=== PATIENT | female | born 1965 | race Caucasian/White ===

== ENCOUNTER 2018-09-10 11:10 | Day surgery (SDC) | payer BC ==
[~2018-09-10] VITALS: Ht 165.1 cm; Wt 96.6 kg
[2018-09-10 13:14] VITALS: Ht 165.1 cm; Wt 96.6 kg
[2018-09-10] MEDS ORDERED: PROPOFOL 200 MG INJ ONE (13:27)
[2018-09-10 13:29] VITALS: BP 132/72; PULSE 75; RESP 18
[2018-09-10] MEDS ORDERED: LORA1TAB PO (13:30)
[2018-09-10] MEDS ORDERED: METF-849 PO (13:30)
[2018-09-10] MEDS ORDERED: ASPI-903 PO (13:30)
--- NOTE | 2018-09-10 13:34 | PREAC ---
Date/Time of Note Date/Time of Note DATE: 09/10/18 TIME: 13:32 Anesthesia Eval and Record Evaluation Time Pre-Procedure Interview DATE: 09/10/18 TIME: 13:32 Age 53 Sex female NPO: 8 hrs Preoperative diagnosis Weight Loss and Abdominal Pain Planned procedure EGD,& Colonoscopy Past Medical History Past Medical History: Includes Cardio: HTN, Dyslipidemia Endo: Diabetes Hepatic: Other (Fatty Liver) GI: Obesity Psych: Anxiety Surgery & Anesthesia Issues No known issue Meds Anticoagulation: No Beta Kirstin within 24 hr: No Reason Beta Kirstin not given: Pt. not on B-Kirstin Reported Medications Metformin* (Glucophage*) 500 Mg Tab, 500 MG PO BID WITH MEALS, #30 TAB 09/10/18 Lorazepam* (Lorazepam*) 1 Mg Tablet, 1 MG PO TID, #30 TAB 09/10/18 Aspirin* (Aspirin* Chew) 81 Mg Tab.chew, 81 MG PO DAILY, TAB.CHEW 09/10/18 Meds reviewed: Yes Allergies Coded Allergies: No Known Allergy (Unverified , 09/10/18) Allergies Reviewed: Yes Labs/Studies Labs Reviewed: Reviewed by anesthesiologist test: N/A Studies: ECG (n/a), CXR (n/a) Pre-procedure Exam Last vitals Vital Signs Date Temp Pulse Resp B/P (MAP) Pulse Ox O2 O2 Flow FiO2 Time Delivery Rate 09/10/18 98.2 75 18 132/72 97 Room Air 13:29 (92) Airway: Adequate mouth opening, Adequate thyromental dist Mallampati: Mallampati II Teeth: Normal Lung: Normal Heart: Normal ASA Physical Status ASA physical status: 3 Emergency: None Planned Anesthetic General/MAC: MAC Planned Pain Management Parenteral pain med Pre-operative Attestations Prior to commencing anesthesia and surgery, the patient was re-evaluated, there was verification of: *The patient's identity *The results of appropriate recent lab work and preoperative vital signs *The above evaluation not changing prior to induction *Anesthetic plan, risk benefits, alternative and complications discussed with patient/family; questions answered; patient/family understands, accepts and wishes to proceed. MEET PEDRAZA MD Sep 10, 2018 13:34
[2018-09-10] MEDS ORDERED: PROPOFOL 60 ML ONE (14:03)
--- NOTE | 2018-09-10 14:06 | PAC ---
Date/Time of Note Date/Time of Note DATE: 09/10/18 TIME: 14:05 Post-Anesthesia Notes Post-Anesthesia Note Last documented vital signs Vital Signs Date Temp Pulse Resp B/P (MAP) Pulse Ox O2 O2 Flow FiO2 Time Delivery Rate 09/10/18 98.2 75 18 132/72 97 Room Air 14:05 (92) Activity: WNL Respiratory function: WNL Cardiovascular function: WNL Mental status: Baseline Pain reasonably controlled: Yes Hydration appropriate: Yes Nausea/Vomiting absent: Yes MEET PEDRAZA MD Sep 10, 2018 14:06
== END 2018-09-10 16:18 | disposition home or self-care (01) ==
LOC: GIL 11:10
PROVIDERS: ATTEND Internal Medicine
DX: Z12.11 Encounter for screening for malignant neoplasm of colon (principal); K64.9 Unspecified hemorrhoids; K20.9 Esophagitis, unspecified; I10 Essential (primary) hypertension; E11.9 Type 2 diabetes mellitus without complications; E78.5 Hyperlipidemia, unspecified; Z79.82 Long term (current) use of aspirin; Z79.84 Long term (current) use of oral hypoglycemic drugs
CPT/HCPCS: 43235; 45378; 82962; Z7610